=== PATIENT | female | born 1955 | race African-American/Black ===

== ENCOUNTER 2022-01-04 19:06 | Emergency (ER) | payer OTHER ==
[~2022-01-04] VITALS: Ht 172.7 cm; Wt 69.6 kg
[2022-01-05] MEDS ORDERED: ACETAMINOPHEN 325MG TABLET PO ONE (01:30)
[2022-01-05] MEDS ORDERED: KETOROLAC 30MG/ML VIAL IM STA (03:27)
[2022-01-05] MEDS ORDERED: METOCLOPRAMIDE HCL 10MG/2ML VIAL IM ONE (03:30)
[2022-01-05 04:00] LABS: BASOPHILS % 0.3 % (0.0-2.0); EOSINOPHILS % 0.1 % (0.0-5.0); HEMATOCRIT. 39.3 % (36.0-48.0); HEMOGLOBIN. 13.5 g/dL (12.0-16.0); LYMPHOCYTES % 66.2 % (20.0-50.0); MEAN CORPUSCULAR HEMOGLOBIN 32.3 pg (28.0-32.0); MEAN CORPUSCULAR VOLUME 93.8 fL (81.0-99.0); MEAN PLATELET VOLUME 8.5 fl (7.4-10.4); MONOCYTES % 9.5 % (2.0-8.0); NEUTROPHILS % 23.9 % (40.0-76.0); PLATELET 168 x1000/uL (130-400); RED BLOOD CELL COUNT 4.19 mill/uL (4.2-5.4); RED CELL DISTRIBUTION WIDTH 13.4 % (11.6-14.6)
[2022-01-05 04:12] LABS: CHLORIDE 104 mEq/L (98-107)
[2022-01-05 04:25] LABS: CLARITY URINE CLEAR (CLEAR); COLOR URINE YELLOW (YELLOW); KETONES URINE NEGATIVE (NEGATIVE); LEUKOCYTE ESTERASE URINE NEGATIVE (NEGATIVE); NITRITE URINE NEGATIVE (NEGATIVE); OCCULT BLOOD URINE NEGATIVE (NEGATIVE); PROTEIN URINE TRACE (NEGATIVE); SPECIFIC GRAVITY URINE 1.016 (1.005-1.030)
[2022-01-05] MEDS ORDERED: FLUT9.9S BOTHNSTRLS (05:46)
[2022-01-05] MEDS ORDERED: CETI10TA6 MT (05:46)
[2022-01-05] MEDS ORDERED: AMOX1TAB16 MT (05:46)
[2022-01-05] MEDS ORDERED: NAPR-681 PO (05:46)
[2022-01-05 06:18] VITALS: BP 165/96
== END 2022-01-05 06:15 | disposition home or self-care (01) ==
LOC: ER 19:06
DX: J01.00 Acute maxillary sinusitis, unspecified (principal); J01.10 Acute frontal sinusitis, unspecified; I45.2 Bifascicular block; R03.0 Elevated blood-pressure reading, without diagnosis of hypertension; R94.31 Abnormal electrocardiogram [ECG] [EKG]
CPT/HCPCS: 36415; 70450; 70486; 71045; 80053; 81003; 84484; 85025; 93005; 96372; 99285; J1885; J2765